=== PATIENT | female | born 1945 | race Caucasian/White ===

== ENCOUNTER → 2021-09-02 | Outpatient (CLI) | payer MEDICARE | LOC: M.RAD 13:28 | PROVIDERS: ATTEND Internal Medicine | DX: Z12.31 Encounter for screening mammogram for malignant neoplasm of breast (principal) ==

== ENCOUNTER 2021-10-23 17:36 | Emergency (ER) | payer MEDICARE, OTHER ==
[~2021-10-23] VITALS: Ht 152.4 cm; Wt 90.7 kg
[2021-10-23] MEDS ORDERED: ESTRADOL TRANSDERM (18:04)
[2021-10-23] MEDS ORDERED: SIMVASTATIN40 MG PO (18:04)
[2021-10-23] MEDS ORDERED: CELEXA 20 MG TA20 MG PO (18:05)
[2021-10-23] MEDS ORDERED: NORVASC5 MG PO (18:05)
[2021-10-23] MEDS ORDERED: VITAMIN D310 MC4 PO (18:06)
[2021-10-23 19:22] VITALS: BP 144/50
== END 2021-10-23 19:22 | disposition home or self-care (01) ==
LOC: M.ERS 17:36
DX: S00.83XA Contusion of other part of head, initial encounter (principal); S80.01XA Contusion of right knee, initial encounter; M25.562 Pain in left knee; Z79.899 Other long term (current) drug therapy; Z88.0 Allergy status to penicillin; W18.11XA Fall from or off toilet without subsequent striking against object, initial encounter; Y93.89 Activity, other specified; Y92.89 Other specified places as the place of occurrence of the external cause; Y99.8 Other external cause status